=== PATIENT | female | born 1945 | race Asian ===

== ENCOUNTER 2017-01-21 03:33 | Emergency (ER) | payer OTHER ==
[2017-01-21 04:36] LABS: Urine Bilirubin Negative (Negative); Urine Blood Negative /uL (Negative); Urine Color Yellow (Yellow); Urine Glucose Normal (Normal); Urine Ketone Negative (Negative); Urine Nitrite Negative (Negative); Urine RBC 1 /hpf (0 - 4); Urine Squamous Epithelial Cell FEW /hpf (<5); Urine Urobilinogen Normal (Negative)
[2017-01-21 05:08] LABS: Basophils # (auto) 0 uL; Basophils % (auto) 0.2 % (0.0-2.0); Eosinophils # (auto) 0.1 uL; Eosinophils % (auto) 1.2 % (0.0-7.0); Hematocrit 38.2 % (36.0-46.0); Hemoglobin 12.9 g/dL (12.2-16.2); Lymphocytes # (auto) 0.9 uL; Lymphocytes % (auto) 11.5 % (10.0-50.0); Mean Corpuscular Hemoglobin 30.6 pg (28.0-32.0); Mean Corpuscular Hgb Conc. 33.7 g/dL (32.0-36.0); Mean Corpuscular Volume 90.8 fL (80.0-100.0); Mean Platelet Volume 6.3 fL (7.4-10.4); Monocytes # (auto) 0.6 uL; Monocytes % (auto) 7.3 % (0.0-12.0); Neutrophils % (auto) 79.8 % (37.0-80.0); Platelet Count (auto) 238 10^3/uL (140-450); Red Cell Distribution Width 13.7 % (11.6-16.0); White Blood Cell 7.5 10^3/uL (4.4-10.8)
[2017-01-21 05:31] LABS: Albumin 3.5 g/dL (3.4-5.0); BUN/Creatinine Ratio 24.1; Calcium 8.2 mg/dL (8.5-10.1); Potassium 3.4 mmol/L (3.5-5.1)
[2017-01-21 05:34] LABS: Bilirubin, Total 0.5 mg/dL (0.2-1.0)
[2017-01-21 06:00] VITALS: BP 135/74
[2017-01-21 07:59] LABS: B-Type Natriuretic Peptide 152.57 pg/mL (0-100); Temperature: 23.5 C (20.0-25.0)
== END 2017-01-21 07:13 | disposition left against medical advice (07) ==
LOC: ER 03:33
DX: F41.9 Anxiety disorder, unspecified (principal); R42 Dizziness and giddiness; R05 Cough; G47.00 Insomnia, unspecified
CPT/HCPCS: 36415; 70450; 80053; 80320; 81001; 83880; 84484; 85025; 93005

== ENCOUNTER 2018-04-08 11:41 | Inpatient (IN) | payer OTHER ==
[~2018-04-08] VITALS: Ht 157.5 cm; Wt 53.5 kg
[2018-04-08 12:36] LABS: Basophils # (auto) 0 uL; Basophils % (auto) 0.1 % (0.0-2.0); Eosinophils # (auto) 0 uL; Hemoglobin 13.6 g/dL (12.2-16.2); Lymphocytes # (auto) 0.4 uL; Lymphocytes % (auto) 2.6 % (10.0-50.0); Mean Corpuscular Hemoglobin 30.1 pg (28.0-32.0); Mean Corpuscular Volume 91.1 fL (80.0-100.0); Monocytes # (auto) 0.8 uL; Monocytes % (auto) 4.5 % (0.0-12.0); Neutrophils # (auto) 15.6 uL; Neutrophils % (auto) 92.8 % (37.0-80.0); Platelet Count (auto) 201 10^3/uL (140-450); Red Blood Cells 4.51 10^6/uL (4.0-5.20); Red Cell Distribution Width 13.9 % (11.8-14.3); White Blood Cell 16.8 10^3/uL (4.4-10.8)
[2018-04-08 12:48] LABS: Albumin 3.7 g/dL (3.4-5.0); Anion Gap 11 (5-15); BUN/Creatinine Ratio 20.7; Blood Urea Nitrogen 17 mg/dL (7-18); Calcium 8.6 mg/dL (8.5-10.1); Carbon Dioxide 24 mmol/L (21-32); Chloride 102 mmol/L (98-107); GFR African American 88 mL/min; GFR Non-African American 73 mL/min; Glucose 110 mg/dL (74-106); Potassium 3.6 mmol/L (3.5-5.1); Sodium 137 mmol/L (136-145)
[2018-04-08 12:49] LABS: Urine Bacteria MANY /hpf (None Seen); Urine Blood 2+ /uL (Negative); Urine Mucus FEW (None Seen); Urine Specific Gravity 1.017 (1.001-1.035); Urine WBC 403 /hpf (0 - 5)
[2018-04-08 13:04] LABS: Alanine Aminotransferase 318 U/L (13-56); Alkaline Phosphatase 120 U/L (45-117); Aspartate Aminotransferase 339 U/L (15-37); Total Protein 7.1 g/dL (6.4-8.2)
[2018-04-08] MEDS ORDERED: SODIUM CHLORIDE 0.9% 1,000 ML IV ONE (14:58)
[2018-04-08] MEDS ORDERED: PIPERACILLIN-TAZOB 3.375GM 100 ML IV ONE (15:15)
[2018-04-08] MEDS ORDERED: TEMAZEPAM 15 MG CAP PO PRN (16:15)
[2018-04-08] MEDS ORDERED: cefTRIAXone 1GM/10ml IVPUSH 10 ML IV ONE (16:15)
[2018-04-08] MEDS ORDERED: ALENDRONATE SODIUM 10 MG TAB PO SCH (16:15)
[2018-04-08] MEDS ORDERED: NITROGLYCERIN 0.4 MG SL TAB SL PRN (16:15)
[2018-04-08] MEDS ORDERED: DOCUSATE SOD 100 MG CAP PO PRN (16:15)
[2018-04-08] MEDS ORDERED: MORPHINE SULF INJ 2 MG/ML SYRINGE 1ML IV PRN (16:15)
[2018-04-08] MEDS ORDERED: HYDROcodone-ACET 5/325MG TAB PO PRN (16:15)
[2018-04-08] MEDS ORDERED: ONDANSETRON HCL 4 MG/2 ML VIAL IV PRN (16:15)
[2018-04-08] MEDS ORDERED: ACETAMINOPHEN 325 MG TAB PO PRN (16:15)
[2018-04-08] MEDS ORDERED: MORPHINE SULFATE 4 MG/ML SYR/VIAL IV PRN (16:15)
[2018-04-08] MEDS: FAMOTIDINE 20 MG TAB PO SCH (16:59)
[2018-04-08] MEDS ORDERED: METO25TA5 PO (17:50)
[2018-04-08] MEDS ORDERED: LOSA50TA6 PO (17:50)
[2018-04-08] MEDS ORDERED: ALEN70TA2 PO (17:50)
[2018-04-08] MEDS ORDERED: LEVO50TA7 PO (17:50)
[2018-04-08] MEDS: SODIUM CHLORIDE 0.9% 1,000 ML IV SCH (18:13)
[2018-04-08 20:00] LABS: Lactic Acid w/Reflex 2.2 mmol/L (0.4-2.0)
[2018-04-08 21:46] VITALS: BP 101/52
[2018-04-08] MEDS ORDERED: FAMOTIDINE 20 MG TAB PO SCH (22:00)
[2018-04-08] MEDS: LOSARTAN POTASSIUM 50 MG TAB PO SCH (22:00)
[2018-04-08] MEDS: METOPROLOL TARTRATE 25 MG TAB PO SCH (22:00)
[2018-04-09] MEDS: METOPROLOL TARTRATE 25 MG TAB PO SCH ×3 (04:30→08:52)
[2018-04-09 04:39] LABS: Basophils # (auto) 0 uL; Basophils % (auto) 0.2 % (0.0-2.0); Eosinophils # (auto) 0.1 uL; Eosinophils % (auto) 1.4 % (0.0-7.0); Hematocrit 36.2 % (36.0-46.0); Hemoglobin 12.6 g/dL (12.2-16.2); Lymphocytes # (auto) 0.9 uL; Lymphocytes % (auto) 8.4 % (10.0-50.0); Mean Corpuscular Volume 91.6 fL (80.0-100.0); Monocytes # (auto) 0.8 uL; Monocytes % (auto) 7.8 % (0.0-12.0); Neutrophils # (auto) 8.6 uL; Neutrophils % (auto) 82.2 % (37.0-80.0); Platelet Count (auto) 150 10^3/uL (140-450); Red Blood Cells 3.95 10^6/uL (4.0-5.20); Red Cell Distribution Width 14.1 % (11.8-14.3); White Blood Cell 10.5 10^3/uL (4.4-10.8)
[2018-04-09 04:50] VITALS: BP 102/52
[2018-04-09 04:58] LABS: Albumin 2.6 g/dL (3.4-5.0); BUN/Creatinine Ratio 21.9; Calcium 7.6 mg/dL (8.5-10.1)
[2018-04-09 05:00] LABS: Total Protein 5.4 g/dL (6.4-8.2)
[2018-04-09] MEDS ORDERED: ALENDRONATE SODIUM 10 MG TAB PO SCH (06:00)
[2018-04-09] MEDS ORDERED: LEVOTHYROXINE SODIUM 25 MCG TAB PO SCH (07:00)
[2018-04-09] MEDS: FAMOTIDINE 20 MG TAB PO SCH (08:49)
[2018-04-09] MEDS: SODIUM CHLORIDE 0.9% 1,000 ML IV SCH (08:49)
[2018-04-09] MEDS: LOSARTAN POTASSIUM 50 MG TAB PO SCH (08:49)
[2018-04-09 08:57] VITALS: BP 109/51
[2018-04-09] MEDS ORDERED: MULTIPLE VITAMIN TAB PO SCH (10:00)
[2018-04-09] MEDS ORDERED: POTASSIUM CHLORIDE 8 MEQ TAB PO ONE (10:30)
[2018-04-09] MEDS ORDERED: cefTRIAXone 1GM/10ml IVPUSH 10 ML IV SCH (18:00)
== END 2018-04-09 11:25 | disposition home or self-care (01) | DRG 690 ==
LOC: ER 11:41 → TELE 11:42 → TELE-WESTW 17:23
PROVIDERS: ADMIT Internal Medicine; ATTEND Internal Medicine
DX: N39.0 Urinary tract infection, site not specified (principal); E44.0 Moderate protein-calorie malnutrition; E03.9 Hypothyroidism, unspecified; I25.10 Atherosclerotic heart disease of native coronary artery without angina pectoris; A08.4 Viral intestinal infection, unspecified; K80.20 Calculus of gallbladder without cholecystitis without obstruction; M51.36 Other intervertebral disc degeneration, lumbar region; M81.0 Age-related osteoporosis without current pathological fracture; Z95.0 Presence of cardiac pacemaker; E87.6 Hypokalemia; N18.2 Chronic kidney disease, stage 2 (mild); I13.10 Hypertensive heart and chronic kidney disease without heart failure, with stage 1 through stage 4 chronic kidney disease, or unspecified chronic kidney disease; Z90.710 Acquired absence of both cervix and uterus; Z95.1 Presence of aortocoronary bypass graft; Z98.82 Breast implant status; Z90.49 Acquired absence of other specified parts of digestive tract; Z68.21 Body mass index [BMI] 21.0-21.9, adult
CPT/HCPCS: 36415; 74176; 76705; 80053; 81001; 83605; 84484; 85025; 87040; 87045; 87086; 87088; 87186; 87493; 87899; 93005; 96374; J0696; J2543

== ENCOUNTER 2021-10-17 07:06 | Emergency (ER) | payer OTHER ==
[~2021-10-17] VITALS: Ht 160 cm; Wt 54.4 kg
[~2021-10-17 07:06] MED LIST: ALEN70TA2 PO; LEVO50TA7 PO; LOSA-69 PO; METO25TA5 PO
[2021-10-17 07:29] VITALS: BP 165/99
[2021-10-17] MEDS ORDERED: ACETAMINOPHEN 500 MG TAB PO ONE (07:45)
[2021-10-17] MEDS ORDERED: ACET-1080 PO (08:13)
== END 2021-10-17 08:54 | disposition home or self-care (01) ==
LOC: ER 07:06
DX: S52.501A Unspecified fracture of the lower end of right radius, initial encounter for closed fracture (principal); M19.041 Primary osteoarthritis, right hand; I10 Essential (primary) hypertension; Z90.49 Acquired absence of other specified parts of digestive tract; Z95.1 Presence of aortocoronary bypass graft; Z95.0 Presence of cardiac pacemaker; Z90.710 Acquired absence of both cervix and uterus; Z79.899 Other long term (current) drug therapy; W07.XXXA Fall from chair, initial encounter; Y93.89 Activity, other specified; Y92.89 Other specified places as the place of occurrence of the external cause; Y99.8 Other external cause status
CPT/HCPCS: 29125; 73110